=== PATIENT | male | born 1955 | race Caucasian/White ===

== ENCOUNTER → 2020-07-07 | Day surgery (SDC) | payer OTHER ==
[~2020-07-07] MED LIST: AVODART0.5 MG PO; CITALOPRAM HBR40 MG PO; DULOXETINE HCL30 MG PO; FLOMAX 0.4 MG0.4 MG PO; GABAPENTIN300 MG PO; LISINOPRIL-HCT1 EAC2 PO; LIVALO4 MG PO; NITROSTAT0.4 MG SL; PHYSICIANS1000 MCG/1 INJ; PLAVIX75 MG PO; PROTONIX40 MG PO; RANOLAZINE ER500 MG PO; ST. JOSEPH ASPI81 M1 PO; TOPROL XL 25 MG25 MG PO; TRIAMTERENE-HC1 EAC1 PO; VITAMIN D325 MCG PO; ZETIA10 MG PO
== END | disposition home or self-care (01) ==
LOC: OR 07:12
DX: K63.5 Polyp of colon (principal); K62.1 Rectal polyp; I25.10 Atherosclerotic heart disease of native coronary artery without angina pectoris; I10 Essential (primary) hypertension; F17.219 Nicotine dependence, cigarettes, with unspecified nicotine-induced disorders; E11.42 Type 2 diabetes mellitus with diabetic polyneuropathy; E78.5 Hyperlipidemia, unspecified; E03.9 Hypothyroidism, unspecified; F41.8 Other specified anxiety disorders; K21.9 Gastro-esophageal reflux disease without esophagitis; N40.0 Benign prostatic hyperplasia without lower urinary tract symptoms; E53.8 Deficiency of other specified B group vitamins; Z88.8 Allergy status to other drugs, medicaments and biological substances; Z82.49 Family history of ischemic heart disease and other diseases of the circulatory system; Z80.0 Family history of malignant neoplasm of digestive organs
CPT/HCPCS: J2704; J7120

== ENCOUNTER → 2021-06-30 | Outpatient (CLI) | payer OTHER | LOC: KOH-I 14:00 | DX: F17.210 Nicotine dependence, cigarettes, uncomplicated (principal) | CPT/HCPCS: 71271 ==

== ENCOUNTER → 2021-07-18 | Outpatient (CLI) | payer OTHER | LOC: CT 07:04 | DX: N40.1 Benign prostatic hyperplasia with lower urinary tract symptoms (principal); N28.89 Other specified disorders of kidney and ureter; N28.1 Cyst of kidney, acquired; D35.02 Benign neoplasm of left adrenal gland; D35.01 Benign neoplasm of right adrenal gland | CPT/HCPCS: Q9967 ==

== ENCOUNTER → 2021-09-28 | Outpatient (CLI) | payer OTHER | LOC: KOH-I 14:31 | DX: R06.02 Shortness of breath (principal) | CPT/HCPCS: 71046 ==